=== PATIENT | female | born 1980 ===

== ENCOUNTER 2018-05-23 11:29 | Outpatient (CLI) | payer OTHER | END 2018-05-23 11:31 | disposition home or self-care (01) | LOC: SONOGRAMA 11:29 | DX: E04.1 Nontoxic single thyroid nodule (principal) ==

== ENCOUNTER 2020-06-10 09:17 | Outpatient (CLI) | payer OTHER | END 2020-06-10 09:23 | disposition home or self-care (01) | LOC: SONOGRAMA 09:17 | PROVIDERS: ATTEND Pathology Anatomic Pathology & Clinical Pathology | DX: E04.1 Nontoxic single thyroid nodule (principal); D34 Benign neoplasm of thyroid gland ==